=== PATIENT | female | born 1945 | race Hispanic/Latino ===

== ENCOUNTER 2019-07-21 18:31 | Emergency (ER) | payer MEDICARE ==
[2019-07-21] MEDS ORDERED: SODIUM CHLORIDE 0.9% 1000ML 1,000 ML IV ONE (18:47)
[2019-07-21] MEDS ORDERED: ONDANSETRON HCL 4 MG/2 ML VIAL ONE ×2 (18:47→21:09)
[2019-07-21 18:58] LABS: BASOPHILS % (AUTO) 1.2 % (0.0-5.0); EOSINOPHILS % (AUTO) 0.1 % (0.0-8.0); HEMATOCRIT 39.4 % (36-48); LYMPHOCYTES % (AUTO) 24.8 % (21.0-51.0); MEAN CORPUSCULAR HEMOGLOBIN 29.7 pg (27.0-33.0); MEAN CORPUSCULAR VOLUME 87.4 fL (79-99); MONOCYTES % (AUTO) 6.4 % (3.0-13.0); NEUTROPHILS % (AUTO) 67.5 % (40.0-77.0); PLATELET COUNT (AUTO) 283 K/uL (130-400); RED CELL DISTRIBUTION WIDTH 14.6 % (11.0-15.5); WHITE BLOOD COUNT (AUTO) 11.3 K/uL (4.8-10.8)
[2019-07-21 19:07] LABS: CREATININE 1.1 mg/dL (0.5-1.5); POTASSIUM 3.7 mmol/L (3.5-5.1)
[2019-07-21 19:11] LABS: ALBUMIN 4.1 g/dL (3.5-5.0); BILIRUBIN,TOTAL 0.4 mg/dL (0.2-1.0); TOTAL PROTEIN, SERUM 8.2 g/dL (6.0-8.3)
[2019-07-21 20:52] LABS: APPEARANCE,URINE Clear (CLEAR); BILIRUBIN,URINE Negative (NEGATIVE); COLOR,URINE Yellow (YELLOW); GLUCOSE, URINE (UA) Negative (NEGATIVE); KETONES,URINE Trace mg/dL (NEGATIVE); LEUKOCYTE ESTERASE ,URINE Moderate (NEGATIVE); NITRATE,URINE Positive (NEGATIVE); OCCULT BLOOD,URINE Small (NEGATIVE); PROTEIN,URINE Trace mg/dL (NEGATIVE); UROBILINOGEN,URINE 0.2 mg/dL (0.2-1.0)
[2019-07-21 21:06] LABS: BACTERIA,URINE Moderate /HPF (None Seen); MUCUS,URINE Rare LPF (None Seen); SQUAMOUS EPITHELIAL CELL,UR Few /HPF (0-2); TRANSITIONAL EPI CELLS,URINE Rare /HPF (None Seen)
[2019-07-21] MEDS ORDERED: SODIUM CHLORIDE 0.9% 50 ML IV ONE (21:10)
[2019-07-21] MEDS ORDERED: CEFTRIAXONE SODIUM 1 GM ONE (21:10)
== END 2019-07-21 21:34 | disposition home or self-care (01) ==
LOC: EDH 18:31
DX: N39.0 Urinary tract infection, site not specified (principal); R11.2 Nausea with vomiting, unspecified; E11.9 Type 2 diabetes mellitus without complications; I10 Essential (primary) hypertension; Z88.0 Allergy status to penicillin; Z90.49 Acquired absence of other specified parts of digestive tract
CPT/HCPCS: 36415; 80053; 81001; 83690; 85025; 93005; 96361; 96374; 96375; 96376; 99285; J0696; J2405 ×2; J7030

== ENCOUNTER → 2024-09-04 | Outpatient (CLI) | payer MEDICARE | END | disposition home or self-care (01) | LOC: RAH 09:08 | PROVIDERS: ATTEND Nurse Practitioner Adult Health | DX: R93.89 Abnormal findings on diagnostic imaging of other specified body structures (principal); R10.30 Lower abdominal pain, unspecified; R10.84 Generalized abdominal pain; R11.0 Nausea; Z90.49 Acquired absence of other specified parts of digestive tract | CPT/HCPCS: 76700; 76856 ==